=== PATIENT | male | born 1950 | race Caucasian/White ===

== ENCOUNTER → 2018-06-07 | Outpatient (CLI) | payer OTHER | END | disposition home or self-care (01) | LOC: RAD 12:14 | PROVIDERS: ATTEND Orthopaedic Surgery Adult Reconstructive Orthopaedic Surgery | DX: M25.561 Pain in right knee (principal); M25.562 Pain in left knee; G89.29 Other chronic pain ==

== ENCOUNTER 2018-06-30 11:51 | Emergency (ER) | payer SELFPAY ==
[~2018-06-30] VITALS: Ht 185.4 cm; Wt 125.0 kg
--- NOTE | 2018-06-30 11:55 | NUR ---
SEIZURE NOTED AT THIS TIME. PT MAINTAINED AIRWAY AND CONSCIOUSNESS POST SEIZURE. CONNECTED TO MONITOR.
--- NOTE | 2018-06-30 12:08 | NUR ---
pt and asked not to use seizure in documentation and to use pseudo seizure instead.
[2018-06-30] MEDS ORDERED: DIPHENHYDRAMINE 50 MG/ML, 1ML ONE (12:44)
[2018-06-30] MEDS ORDERED: DEXAMETHASONE 4 MG TABLET ONE (12:44)
[2018-06-30] MEDS ORDERED: KETOROLAC 30 MG/1 ML ONE (12:44)
[2018-06-30] MEDS ORDERED: METOCLOPRAMIDE 10MG TABLET ONE (12:45)
[2018-06-30] MEDS ORDERED: KETOROLAC 30 MG/1 ML IM ONE (13:00)
[2018-06-30] MEDS ORDERED: DEXAMETHASONE 4 MG TABLET PO ONE (13:00)
[2018-06-30] MEDS ORDERED: METOCLOPRAMIDE 10MG TABLET PO PRN (13:00)
[2018-06-30] MEDS ORDERED: DIPHENHYDRAMINE 50 MG/ML, 1ML IM ONE (13:00)
--- NOTE | 2018-06-30 13:07 | NUR ---
[facility] HAND-OFF REPORT RECEIVED FROM ANJEL SAUCEDO. ASSUMING CARE OF PATIENT.
[2018-06-30 13:30] VITALS: BP 123/75
--- NOTE | 2018-06-30 14:09 | NUR ---
Patient/Caregiver given discharge instructions and they have confirmed that they understand the instructions. Patient ambulatory with steady gait.
== END 2018-06-30 14:10 | disposition home or self-care (01) ==
LOC: MERGE 11:51 → ED 13:09
DX: G43.111 Migraine with aura, intractable, with status migrainosus (principal)
CPT/HCPCS: 96372; 99283; J1200; J1885